=== PATIENT | male | born 1995 | race Caucasian/White ===

== ENCOUNTER 2019-03-15 10:07 | Emergency (ER) | payer SELFPAY ==
[~2019-03-15] VITALS: Ht 170.2 cm; Wt 79.8 kg
[2019-03-15 10:10] VITALS: Ht 170.2 cm; Wt 79.8 kg
[2019-03-15 11:42] VITALS: BP 134/92
== END 2019-03-15 11:42 | disposition home or self-care (01) ==
LOC: ED 10:07
DX: S09.90XA Unspecified injury of head, initial encounter (principal); W21.03XA Struck by baseball, initial encounter; Y93.64 Activity, baseball; Y92.320 Baseball field as the place of occurrence of the external cause; Y99.8 Other external cause status